=== PATIENT | male | born 1950 | race Caucasian/White ===

== ENCOUNTER → 2020-06-23 08:30 | Outpatient (BNVA) | payer MEDICARE, SELFPAY | PROVIDERS: Visit Provider Surgery | DX: Z11.59 Encounter for screening for other viral diseases (principal) | CPT/HCPCS: 87635 ==

== ENCOUNTER 2020-06-28 10:26 | Day surgery (SDC) | payer MEDICARE, SELFPAY ==
[2020-06-27 08:57] VITALS: BMI 30.8
[2020-06-28 10:39] VITALS: BP 163/79; PULSE 55; RESP 18; TEMP 36.8; O2SAT 93
[2020-06-28] MEDS: lidocaine 1% INJ 20 mL SUBCUT (10:52)
[2020-06-28] MEDS: sodium chloride 0.9% 1,000 ML 30 ML IV (11:03)
--- NOTE | 2020-06-28 11:05 | W.PM.OPSUD ---
Surgery/Procedure H&P Update DATE OF PROCEDURE: June 28, 2020 DATE H&P PERFORMED: 06/13/20 H&P UPDATE INFORMATION: I have reviewed H&P completed within last 30 days, I have examined patient prior to procedure and No changes to prior documentation PREOP DIAGNOSIS: Mass left side of neck PLANNED PROCEDURE: Operation Date: 06/28/20 11:55 Proposed Procedures p excision of left neck mass 97491 R22.1(Left) - Ji Mohan MD
--- NOTE | 2020-06-28 11:29 | ANES.PREANE2 ---
Pre-Anesthetic Assessment Pre-Anesthetic Assessment: Height/Weight: Height 1.78 m Weight 97.522 kg Temp Pulse Resp BP Pulse Ox 98.3 F 55 L 18 163/79 93 06/28/20 10:39 06/28/20 10:39 06/28/20 10:39 06/28/20 10:39 06/28/20 10:39 Preop Diagnosis: Mass left side of neck Proposed Procedure: Operation Date: 06/28/20 11:55 Proposed Procedures p excision of left neck mass 50305 R22.1(Left) - Ji Mohan MD Familial anesthetic complications: None Was Beta Marvin taken within 24 hours: N/A Last intake: Intake Last Liquid Date 06/27/20 Last Liquid Time 22:00 Last Solid Date 06/27/20 Last Solid Time 19:00 Social: Social History: No alcohol and No tobacco Exam: Pre-Anes Outpt Exam: alert, oriented x 3, clear to auscultation bilaterally and regular rate & rhythm Airway: Cervical ROM: WNL MP: 2 Dentition: False CV/HEM: CV/HEM: HTN Metabolic: Comments: Patient states he had covid on Jun 04 (symptoms were runny nose) and lasted three days. he completed 14 days of isolation per the health department. He tests positive today. HE denies any current symptoms, clear lungs, no SOB, no fever. Anesthetic Plan: ASA status: 2 Anesthesia: MAC Risk of > 500 ml blood loss (7ml/kg in children): No Meds/Allergies Current Medications: Current Medications Generic Name Dose Route Start Last Admin Trade Name Freq PRN Reason Stop Dose Admin Sodium Chloride 1,000 mls @ 30 ml s/hr 06/28/20 10:45 06/28/20 11:03 Sodium Chloride 0.9% IV 06/29/20 10:44 30 mls/hr .Q24H NAYELY Administration PFSH Anesthesia PFSH: Medical History (Updated 06/17/20 @ 11:11 by Ji Mohan MD) Cyst of neck Hypertension Surgical History History of colonoscopy History of laparoscopic cholecystectomy Family History Denies family history of Anesthesia complication Bleeding disorder Social History Smoking and tobacco status: never smoked Alcohol intake: never Adopted: No Caregiver/support person: Yes Lives independently: Yes Household members: spouse Housing: House Marital status: Pets and animals: No History of recent travel: No Data Anesthesia Cardiac Studies: No Data to Display
--- NOTE | 2020-06-28 12:20 | PM.OP ---
Operative Report Date of procedure: June 28, 2020 Pre-op Diagnosis: Mass left side of neck Post-op Diagnosis: Mass left side of neck measuring 6 x 5 x 1.5 cm Procedure Done: Excision of subcutaneous mass left side of neck Pathology: Mass left side of neck Surgeon: Ji Mohan Anesthesia: MAC Condition: stable Disposition: PACU Procedure: The patient was taken to the operating room and placed in right lateral position under MAC after IV antibiotic had been administered. The area around the palpable mass on the left side of the neck was prepped and draped in a sterile manner. 1% lidocaine with 0.5% Marcaine was infiltrated around the palpable mass. Using 15 blade a 5 cm incision was made, subcutaneous tissue was divided using electrocautery and the lipoma was dissected free from the surrounding subcutaneous tissue. Wound wa chief complaint: Status post colonoscopy with polypectomy History of present illness: Patient has been doing well, no abdominal pain or bleeding per rectum is couple of vaginal lesions colonoscopy a couple warts she wanted out she is been swabbed 7 times for Covid s so she is like anything and everything irrigated with saline, hemostasis ensured and subcutaneous tissues approximated using running 3-0 Vicryl suture and skin was closed using running subcuticular 4-0 Monocryl suture and surgical glue. The patient was transferred to recovery room in stable condition.
[2020-06-28 13:24] VITALS: BP 134/97; PULSE 50; RESP 18; TEMP 36.2; O2SAT 94
[2020-06-28 13:35] VITALS: BP 139/56; PULSE 59; RESP 18; TEMP 36.2; O2SAT 94
== END 2020-06-28 14:07 | disposition home or self-care (01) ==
PROVIDERS: Visit Provider Surgery
PROC: (CPT 11426; principal; 2020-06-28 11:55)
DX: D17.0 Benign lipomatous neoplasm of skin and subcutaneous tissue of head, face and neck (principal); I10 Essential (primary) hypertension; Z79.82 Long term (current) use of aspirin
CPT/HCPCS: 11426; 12042; 12345; 88309; J0690; J2250; J2704; J3010; J3490; J7030